=== PATIENT | female | born 1970 | race Hispanic/Latino ===

== ENCOUNTER 2021-05-10 18:06 | Emergency (ER) | payer BC, OTHER ==
[~2021-05-10] VITALS: Ht 157.5 cm; Wt 131.5 kg
[2021-05-10 18:10] VITALS: BP 149/91
== END 2021-05-11 01:57 | disposition left against medical advice (07) ==
LOC: EDH 18:06
DX: M79.605 Pain in left leg (principal); Z53.21 Procedure and treatment not carried out due to patient leaving prior to being seen by health care provider